=== PATIENT | male | born 1940 | race Caucasian/White ===

== ENCOUNTER 2017-01-18 13:15 | Emergency (ER) | payer OTHER ==
[~2017-01-18] VITALS: Ht 172.7 cm; Wt 74.8 kg
[~2017-01-18 13:15] MED LIST: DOXA2TAB1 PO; METO50TE2 PO; NIFE60TE5 PO; PANT40EC PO; SIMV40TA1 PO
[2017-01-18 13:29] VITALS: BP 187/84
--- NOTE | 2017-01-18 13:58 | NUR ---
Patient ambulated to bed 3 with family. RN evaluating patient at bedside.
[2017-01-18] MEDS ORDERED: ONDANSETRON 4 MG ODT PO ONE (14:00)
--- NOTE | 2017-01-18 14:09 | NUR ---
PATIENT PRESENTS TO ED WITH N/V/D X 1 DAY BIB [id number] WHO STATES HE STARTED FEELING THIS WAY AFTER HE ATE PORK FOR DINNER . DENIES AAOX4 WITH EVEN AND LUNGS CLEAR BL; PT DENIES ANY FEVER, CP, SOB, OR COUGH AT THIS TIME; PATIENT STATES PAIN OF 0/10 AT THIS TIME; VSS; PATIENT POSITIONED FOR COMFORT; HOB ELEVATED; BEDRAILS UP X2; BED DOWN.
--- NOTE | 2017-01-18 14:40 | NUR ---
DR PIKE AT BEDSIDE
[2017-01-18] MEDS ORDERED: NACL 0.9% 1,000 ML IV ONE (14:45)
[2017-01-18] MEDS ORDERED: ONDANSETRON 4 MG/2 ML VIAL IVP ONE (15:25)
[2017-01-18 15:42] LABS: HEMOGLOBIN 13.1 g/dL (12.0-18.0); MEAN CORPUSCULAR HEMOGLOBIN 29 pg (27-31); MEAN CORPUSCULAR HGB CONC 33 g/dL (33-37); MEAN CORPUSCULAR VOLUME 90 fL (80-94); PLATELET COUNT (AUTO) 141 K/uL (140-450); RED BLOOD CELL COUNT(AUTO) 4.45 MIL/uL (4.20-6.10); RED CELL DISTRIBUTION WIDTH 13.7 % (11.6-13.7); WHITE BLOOD COUNT (AUTO) 13.4 K/uL (4.8-10.8)
[2017-01-18 15:56] LABS: ANION GAP 12.5 (8-16); CALCIUM 8.1 mg/dL (8.5-10.1); CARBON DIOXIDE 28.4 mmol/L (21-32); CHLORIDE 106 mmol/L (98-107); CREATININE 1.9 mg/dL (0.6-1.3); GLUCOSE 130 mg/dL (74-106); POTASSIUM 3.9 mmol/L (3.5-5.1); SODIUM SERUM 143 mmol/L (136-145); UREA NITROGEN, BLOOD 26 mg/dL (7-18)
[2017-01-18 15:59] LABS: BAND % (MANUAL) 5 % (0-8); LYMPHOCYTES % (MANUAL) 3 % (20-46); MONOCYTES % (MANUAL) 3 % (5-12); NEUTROPHILS % (MANUAL) 89 (43-65); PLATELET ESTIMATE ADEQUATE
[2017-01-18 16:02] LABS: ALANINE AMINOTRANSFERASE 23 U/L (12-78); ALBUMIN 3.6 g/dL (3.4-5.0); ALKALINE PHOSPHATASE 49 U/L (46-116); ASPARTATE AMINOTRANSFERASE 13 U/L (15-37); TOTAL BILIRUBIN 1.4 mg/dL (0.0-1.0); TOTAL PROTEIN, SERUM 6.6 g/dL (6.4-8.2)
--- NOTE | 2017-01-18 16:07 | NUR ---
PATIENT STATES HE IS FEELING BETTER AFTER THE IV ZOFRAN, IVF STILL RUNNING, PATIENT IS RESTING IN BED SIDE RAILS UP X2, FAMILY AT BEDSIDE.
--- NOTE | 2017-01-18 16:45 | NUR ---
PATIENT TOLEARTED PO WATER AND WAS ABLE TO HOLD IT DOWN, STATES HE IS FEELING BETTER, NO MORE NAUSEA AT THIS TIME.
--- NOTE | 2017-01-18 17:11 | NUR ---
Patient discharged with v/s stable. Written and verbal after care instructions given and explained. Patient alert, oriented and verbalized understanding of instructions. Ambulatory with steady gait. All questions addressed prior to discharge. ID band removed. Patient advised to follow up with PMD. Rx of ZOFRAN AND IMMODIUM given. Patient educated on indication of medication including possible reaction and side effects. Opportunity to ask questions provided and answered. IV D/C, NO ACTIVE BLEEDING AT THE SITE, BANDAID PLACED OVER DC SITE. PATIENT ADVISED TO FOLLOW UP REGARDING BP AND KIDNEY FUNCTION TESTS WITH HIS PRIMARY DOCTOR. DR. PIKE AWARE OF BP OK TO DC
[2017-01-18 17:13] VITALS: BP 200/97
== END 2017-01-18 17:11 | disposition home or self-care (01) ==
LOC: MED 13:15
DX: N17.9 Acute kidney failure, unspecified (principal); I10 Essential (primary) hypertension; Z90.89 Acquired absence of other organs; Z79.899 Other long term (current) drug therapy
CPT/HCPCS: 36415; 80053; 85025; 96361; 96374; 99285; J2405; J7030; S0119